=== PATIENT | female | born 1965 | race Two or more races ===

== ENCOUNTER → 2020-02-09 | Emergency (ER) | payer MEDICAID, OTHER ==
[~2020-02-09] VITALS: Ht 170.2 cm; Wt 45.4 kg
[~2020-02-09] MED LIST: ALBUTEROL SULF 2.5 MG/0.5ML(0.5%) NEB SOLN NEB ONE; IOHEXOL 300 MG/ML 100ML BOTTLE IJ ONE; IPRATROPIUM BROM 0.5 MG/2.5ML INH SOL NEB ONE; MEPERIDINE HCL (25 MG/ML) 1ML VIAL IV ONE; ONDANSETRON HCL 4 MG/2 ML VIAL IV ONE; PROMETHAZINE HCL 25 MG/ML 1ML IV ONE; SODIUM CHLORIDE 0.9% 1,000 ML IVB ONE; cefTRIAXone 1GM/50ML D5W 50 ML IV ONE
[2020-02-09 17:49] LABS: Basophils # (auto) 0.2 10 ^3/uL (0-0.2); Eosinophils # (auto) 0.4 10 ^3/uL (0-0.8); Hematocrit 24.6 % (36.0-46.0)
[2020-02-09 17:55] LABS: Basophils % (auto) 1.2 % (0.0-2.0); Eosinophils % (auto) 2.1 % (0.0-7.0); Hemoglobin 8.4 g/dL (12.2-16.2); Lymphocytes # (auto) 4.2 10 ^3/uL (0.4-5.4); Lymphocytes % (auto) 23.1 % (10.0-50.0); Mean Corpuscular Hemoglobin 34.1 pg (28.0-32.0); Mean Corpuscular Hgb Conc. 34.4 g/dL (32.0-36.0); Mean Corpuscular Volume 99.4 fL (80.0-100.0); Monocytes # (auto) 1.5 10 ^3/uL (0-1.3); Monocytes % (auto) 8.2 % (0.0-12.0); Neutrophils # (auto) 11.8 10 ^3/uL (1.6-8.6); Neutrophils % (auto) 65.4 % (37.0-80.0); Nucleated Red Blood Cells % 0.2 %; Platelet Count (auto) 583 10^3/uL (140-450); Red Blood Cells 2.47 10^6/uL (4.0-5.20); White Blood Cell 18.1 10^3/uL (4.4-10.8)
[2020-02-09 17:58] LABS: Red Cell Distribution Width 23.6 % (11.8-14.3)
[2020-02-09 18:07] LABS: INR 1.11 (0.9-1.15); Partial Thromboplastin Time 30.8 sec (23.64-32.05)
[2020-02-09 18:08] LABS: Albumin 3.4 g/dL (3.4-5.0); Calcium 9.2 mg/dL (8.5-10.1); Potassium 3.5 mmol/L (3.5-5.1)
[2020-02-09 18:12] LABS: BUN/Creatinine Ratio 8.1; Bilirubin, Total 3.1 mg/dL (0.2-1.0)
[2020-02-10 00:09] VITALS: BP 107/55
== END | disposition home or self-care (01) ==
LOC: EDUNIT# 15:45 → EDBD 15:46 → ER 15:46
DX: J18.9 Pneumonia, unspecified organism (principal); D49.89 Neoplasm of unspecified behavior of other specified sites; J45.909 Unspecified asthma, uncomplicated; I10 Essential (primary) hypertension; F17.210 Nicotine dependence, cigarettes, uncomplicated
CPT/HCPCS: 36415; 70490; 71045; 80053; 83605; 83735; 85025; 85610; 85730; 87040; 93005; 94640; 96365; 96375; 96376; 99291; J0696; J2175; J2405; J2550; J7644